=== PATIENT | female | born 1960 | race Caucasian/White ===

== ENCOUNTER 2019-04-10 11:38 | Emergency (ER) | payer BC, OTHER ==
[~2019-04-10] VITALS: Ht 170.2 cm; Wt 88.6 kg
[2019-04-10 11:57] VITALS: BP 132/98
[2019-04-10] MEDS ORDERED: ACET-2615 PO (14:04)
[2019-04-10] MEDS ORDERED: CYCL-1 PO (14:04)
[2019-04-10] MEDS ORDERED: MELO-100 PO (14:04)
[2019-04-10] MEDS ORDERED: PRED10TA PO (14:04)
== END 2019-04-10 14:34 | disposition home or self-care (01) ==
LOC: ER 11:39
DX: M54.12 Radiculopathy, cervical region (principal); Z88.5 Allergy status to narcotic agent; Z79.899 Other long term (current) drug therapy
CPT/HCPCS: 99283

== ENCOUNTER 2020-03-26 10:30 | Emergency (ER) | payer BC, OTHER ==
[~2020-03-26] VITALS: Ht 170.2 cm; Wt 84.1 kg
[~2020-03-26 10:30] MED LIST: CYCL-1 PO; MELO-100 PO; PRED10TA PO
[2020-03-26 10:32] VITALS: BP 121/72
== END 2020-03-26 11:24 | disposition home or self-care (01) ==
LOC: ER 10:30
DX: B34.9 Viral infection, unspecified (principal); R05 Cough; R51 Headache; R50.9 Fever, unspecified; Z20.828 Contact with and (suspected) exposure to other viral communicable diseases; Z88.8 Allergy status to other drugs, medicaments and biological substances; Z79.899 Other long term (current) drug therapy; M79.18 Myalgia, other site
CPT/HCPCS: 36415; 87502; 87503; 87635; 99283